=== PATIENT | female | born 1990 | race Caucasian/White ===

== ENCOUNTER 2018-01-18 13:59 | Emergency (ER) | END 2018-01-18 17:46 | disposition home or self-care (01) ==

== ENCOUNTER 2018-04-27 15:28 | Emergency (ER) | payer OTHER ==
[~2018-04-27] VITALS: Ht 167.6 cm; Wt 58.1 kg
[~2018-04-27 15:28] MED LIST: HC30CR25 TOP; METR500T PO; VALA10004 PO
[2018-04-27 15:49] VITALS: BP 95/53; PULSE 86; RESP 20; Ht 167.6 cm; Wt 58.1 kg
[2018-04-27] MEDS ORDERED: ACETAMINOPHEN 500 MG TAB PO STA (18:04)
[2018-04-27] MEDS ORDERED: BENZ-6 PO (19:31)
[2018-04-27] MEDS ORDERED: IBUP-1542 PO (19:31)
[2018-04-27] MEDS ORDERED: GUAI5SYR2 PO (19:31)
--- NOTE | 2018-04-27 19:42 | ERD ---
ER Documentation Chief Complaint Chief Complaint Complains of a cough x 4-5 days HPI Patient is a 28-year-old female presents the ER for concerns of a cough times 4- 5 days. Patient reports intermittent temperatures with T-max of 101 Fahrenheit. Patient denies any chest pain or shortness of breath. Patient states her cough is dry in nature. Patient daughter is also sick contact. Patient denies any throat pain, ear pain, abdominal pain, nausea, vomiting or diarrhea. No recent travel. ROS All systems reviewed and are negative except as per history of present illness. Medications Home Meds Active Scripts Guaifenesin-Dextromethorphan* (Robitussin* DM) 100MG/10MG/5ML Syrup, 5 ML PO Q6H PRN for COUGH, #1 BOT Prov:KEVIN SERRATO PA-C 04/27/18 Benzonatate* (Tessalon Perle*) 100 Mg Capsule, 100 MG PO Q8H PRN for COUGH, #20 CAP Prov:KEVIN SERRATO PA-C 04/27/18 Ibuprofen* (Motrin*) 600 Mg Tab, 600 MG PO Q6, #30 TAB Prov:KEVIN SERRATO PA-C 04/27/18 Hydrocortisone* Topical (Hydrocortisone* Topical) 2.5%-28.3 Gm Cream..g., 1 APPLIC TOP BID for 7 Days, #1 TUB Prov:STEPHANIE JAMESON PA-C 01/18/18 Valacyclovir HCl (Valtrex) 1,000 Mg Tablet, 1000 MG PO BID for 10 Days, TAB Prov:STEPHANIE JAMESON PA-C 01/18/18 Metronidazole* (Flagyl*) 500 Mg Tablet, 500 MG PO BID for 7 Days, TAB Prov:STEPHANIE JAMESON PA-C 01/18/18 Allergies Allergies: Coded Allergies: No Known Allergy (Unverified , 01/18/18) PMhx/Soc Medical and Surgical Hx: pt denies Medical Hx, pt denies Surgical Hx Hx Alcohol Use: No Hx Substance Use: No Hx Tobacco Use: No Smoking Status: Never smoker FmHx Family History: No diabetes Physical Exam Vitals Vital Signs Date Temp Pulse Resp B/P (MAP) Pulse Ox O2 O2 Flow FiO2 Time Delivery Rate 04/27/18 101.1 18:43 04/27/18 100.6 86 20 95/53 (14) 98 15:49 Physical Exam GENERAL: Well-developed, well-nourished female. Appears in no acute distress. Speaking in full sentences. HEAD: Normocephalic, atraumatic. No deformities or ecchymosis. EYE: Pupils equal, round, and reactive to light. EOMs intact. No conjunctival erythema. No eye discharge. ENT: External ear without any masses or tenderness. Auditory canals clear bilaterally. TM visualized bilaterally, non-erythematous, non-bulging. Nasal mucosa pink with no discharge. Oropharynx is pink without any tonsillar erythema or exudates. No uvula deviation. No kissing tonsils. NECK: Supple. No meningismus. Normal ROM of the neck. LUNG: Clear to auscultation bilaterally. No rhonchi, wheezing, rales or coarse breath sounds. HEART: Regular rate and rhythm. No murmurs, rubs or gallops. EXTREMITES: Equal pulses bilaterally. No peripheral clubbing, cyanosis or edema. No unilateral leg swelling. NEUROLOGIC: Alert and oriented to person, place and time. Moving all four extremities. 5/5 strength in all extremities. Normal speech. Steady gait. SKIN: Normal color. Warm and dry. No rashes or lesions. Results 24 hrs Current Medications Medications Dose Sig/Juan Alberto Start Time Status Last (Trade) Ordered Route PRN Stop Time Admin Dose Reason Admin 1,000 mg ONCE STAT 04/27/18 DC 04/27/18 Acetaminophen PO 18:04 04/27/18 18:43 (Tylenol 18:05 Tab) Procedures/MDM ED COURSE: The patient was stable throughout ED course. I kept the patient and/or family informed of laboratory and diagnostic imaging results throughout the ED course. DIAGNOSTIC IMAGING: Read by radiologist. Radiology Main Line: [phone] DIAGNOSTIC IMAGING REPORT Patient: ANDREW BOSS : 1990 Age: 28 Sex: F MR #: [id number] DOS: 04/27/18 1804 Ordering MD: KEVIN SERRATO PA-C Location: [facility] Room/Bed: PROCEDURE: Chest x-ray CLINICAL INDICATION: Cough TECHNIQUE: Chest single view COMPARISON: None FINDINGS: The heart is normal in size. The pulmonary vessels are normal in caliber. The lungs are clear. The costophrenic angles are sharp. The visualized bony thorax is unremarkable. IMPRESSION: No acute cardiopulmonary disease. RPTAT: HH .Amor Gallo MD, MD Date Time Electronically viewed and signed by .Amor Gallo MD, MD on 04/27/2018 18:57 .W/ CC: KEVIN SERRATO PA-C [phone] PROCEDURES: None. MEDICATIONS GIVEN: Tylenol Patient tolerated medication well with no adverse reactions. Patient reported improvement in pain. MEDICAL DECISION MAKING: This is a 28-year-old female presents the ER for concerns of intermittent fevers and cough times 4-5 days. Vital signs were reviewed. Patient was noted to have a temperature of 100.6 Fahrenheit. Patient was given Tylenol here in the ER. Patient was not hypoxic. ENT exam was normal. Lung exam was normal. Influenza swab was negative. Chest x-ray was unremarkable. At this time and the patient presentation is most consistent with viral URI. Low suspicion for pneumonia, meningitis, sinusitis, otitis externa, acute otitis media, strep pharyngitis, epiglottitis or peritonsillar abscess. Patient was nontoxic, [id number] prior to discharge. PRESCRIPTIONS: Ibuprofen, Tessalon Perles, Robitussin-DM DISCHARGE: At this time, patient is stable for discharge and outpatient management. Supportive therapies such as OTC throat lozenges, salt water gurgles, popsicles and jello discussed. I have instructed the patient to follow-up with his/her primary care physician in 1-2 days. I have instructed the patient to promptly return to the ER for any new or worsening symptoms including increased pain, swelling, fever, nausea, vomiting, weakness or difficulty breathing. The patient and/or family expressed understanding of and agreement with this plan. All questions were answered. Home care instructions were provided. Disclaimer: Inadvertent spelling and grammatical errors are likely due to EHR/dictation software use and do not reflect on the overall quality of patient care. Also, please note that the electronic time recorded on this note does not necessarily reflect the actual time of the patient encounter. Departure Diagnosis: Primary Impression: Viral syndrome Condition: Fair Patient Instructions: Viral Syndrome (Adult) Referrals: [facility] YOU HAVE RECEIVED A MEDICAL SCREENING EXAM AND THE RESULTS INDICATE THAT YOU DO NOT HAVE A CONDITION THAT REQUIRES URGENT TREATMENT IN THE EMERGENCY DEPARTMENT. FURTHER EVALUATION AND TREATMENT OF YOUR CONDITION CAN WAIT UNTIL YOU ARE SEEN IN YOUR DOCTORS OFFICE WITHIN THE NEXT 1-2 DAYS. IT IS YOUR RESPONSIBILITY TO M DEVEN AN APPOINTMENT FOR FOLOW-UP CARE. IF YOU HAVE A PRIMARY DOCTOR --you should call your primary doctor and schedule an appointment IF YOU DO NOT HAVE A PRIMARY DOCTOR YOU CAN CALL OUR PHYSICIAN REFERRAL HOTLINE AT IF YOU CAN NOT AFFORD TO SEE A PHYSICIAN YOU CAN CHOSE FROM THE FOLLOWING [facility] [address] [facility]. [facility] [address] [facility]. [facility] [address] [facility] [address] [facility] [address] [facility]. [facility] [address] [facility]. [facility] YOU HAVE RECEIVED A MEDICAL SCREENING EXAM AND THE RESULTS INDICATE THAT YOU DO NOT HAVE A CONDITION THAT REQUIRES URGENT TREATMENT IN THE EMERGENCY DEPARTMENT. FURTHER EVALUATION AND TREATMENT OF YOUR CONDITION CAN WAIT UNTIL YOU ARE SEEN IN YOUR DOCTORS OFFICE WITHIN THE NEXT 1-2 DAYS. IT IS YOUR RESPONSIBILITY TO MAKE AN APPOINTMENT FOR FOLOW-UP CARE. IF YOU HAVE A PRIMARY DOCTOR --you should call your primary doctor and schedule and appointment IF YOU DO NOT HAVE A PRIMARY DOCTOR YOU CAN CALL OUR PHYSICIAN REFERRAL HOTLINE AT . IF YOU CAN NOT AFFORD TO SEE A PHYSICIAN YOU CAN CHOSE FROM THE FOLLOWING [facility] INSTITUTIONS: [facility] [address] [place] [address] [facility] [address] [place] [address] [address] Additional Instructions: Call your primary care doctor TOMORROW for an appointment during the next 1-2 days.See the doctor sooner or return here if your condition worsens before your appointment time. KEVIN SERRATO PA-C Apr 27, 2018 19:42
== END 2018-04-27 19:46 | disposition home or self-care (01) ==
LOC: FTE 15:28
DX: B34.9 Viral infection, unspecified (principal)
CPT/HCPCS: 71045; 87400; Z7502; Z7610